=== PATIENT | female | born 1960 | race Hispanic/Latino ===

== ENCOUNTER 2019-08-05 07:12 | Day surgery (SDC) | payer OTHER ==
[2019-08-05] MEDS ORDERED: SODIUM CHLORIDE 0.9% 500 ML 500 ML IV SCH (09:00)
[2019-08-05] MEDS ORDERED: EPINEPHrine 1:10,000 1 MG/10 ML SYRINGE ONE (10:24)
[2019-08-05] MEDS ORDERED: ATROPINE 0.1% (1 MG/10 ML) CARDIAC SYRINGE ONE (10:24)
[2019-08-05] MEDS ORDERED: ADENOSINE 6 MG/2 ML INJ ONE (10:25)
[2019-08-05] MEDS: NITROGLYCERIN 0.4 MG TAB SUBL SL ONE ×2 (10:34→10:40)
[2019-08-05 11:49] VITALS: BP 110/61
--- NOTE | 2019-08-05 11:57 | Short Stay Summary ---
Short Stay Documentation Date of service: 08/05/19 - History H&P: obtained from office - Allergies and Medications Current Medications: Allergies aspirin Adverse Reaction (Unverified 08/05/19 07:12) Swelling latex Adverse Reaction (Unverified 08/05/19 07:13) Unknown pneumococcal vaccine Adverse Reaction (Verified 08/05/19 09:17) Swelling tramadol Adverse Reaction (Unverified 08/05/19 07:13) Rash Home Medications Medication Instructions Recorded Confirmed Last Taken Type Cetirizine HCl [Zyrtec 10mg tab] 10 mg PO QHS 08/05/19 08/05/19 08/04/19 History Clopidogrel [Plavix] 75 mg PO DAILY 08/05/19 08/05/19 08/05/19 05:00 History Metformin HCl [Metformin HCl ER] 500 mg PO BID 08/05/19 08/05/19 08/05/19 History Montelukast [Singulair] 10 mg PO QPM 08/05/19 08/05/19 08/04/19 History Omeprazole 20 mg PO DAILY 08/05/19 08/05/19 08/05/19 History Ranitidine HCl [Zantac] 300 mg PO QHS 08/05/19 08/05/19 08/04/19 History Verapamil ER [Calan SR] 180 mg PO DAILY 08/05/19 08/05/19 08/05/19 05:00 History Active Medications Sodium Chloride (Nacl 0.9% 500 Ml) 500 mls @ 50 mls/hr IV DIRECT MADDIE Last Admin: 08/05/19 09:10 Dose: 50 mls/hr Documented by: - Physical exam General appearance: no acute distress Lungs: Clear to auscultation Heart: Regular rate Gastrointestinal: normal Neurological: Normal gait - Brief post op/procedure progress note Date of procedure: 08/05/19 Pre-op diagnosis: Syncope Post-op diagnosis: same Procedure: TTT Anesthesia: none Findings: See report Surgeon: MARCY BURRIS Estimated blood loss: none Pathology: none Condition: stable - Hospital course Hospital course: Uneventful - Disposition Condition at discharge: Good Disposition: DC-01 TO HOME OR SELFCARE Short Stay Discharge Plan Activity: advance as tolerated Weight Bearing Status: Weight Bear as Tolerated Diet: regular Follow up with: VANESA STEVENS MD [Other] - 7 Days
--- NOTE | 2019-08-05 23:02 | Procedure Note ---
TILT TABLE TEST. ORDERING PHYSICIAN: Dr. Demarco Wiley DO INDICATION: Syncope. DESCRIPTION OF PROCEDURE: After obtaining written consent, the patient was brought to the director of cardiac cath lab area. The patient was secured on the tilt table test. Prior to tilting, her blood pressure was 112/66 with a heart rate of 61 beats per minute. The patient was tilted to 85 degrees from horizontal. Her blood pressure after tilting was 125/74 with a heart rate of 71 beats per minute. The patient was monitored for 10 minutes in the upright position. At the end of these 10 minutes, her blood pressure was 125/67 with a heart rate of 70 beats per minute. The patient was subsequently given 0.4 mg of sublingual nitroglycerin. Three minutes after the nitroglycerin dose, the patient's blood pressure dropped to 60/34. Her heart rate remained 55 beats per minute, sinus rhythm. The patient did not lose consciousness; however, due to the significant drop in blood pressure, she was tilted back to horizontal with gradual return of her blood pressure to 94/60. During that her heart rate maintained between 50 and 60 beats per minute. IMPRESSION: Vasodepressor response to nitroglycerin; however, no evidence of a cardioinhibitory response and no loss of consciousness. This is an inconclusive tilt table test. RECOMMENDATION: Follow up with referring operator and truck driver. JOB# [id number] LAMAR/BRIGHT
== END 2019-08-05 12:15 | disposition home or self-care (01) ==
LOC: CATHLABREC 07:12
PROVIDERS: ATTEND Internal Medicine
DX: R55 Syncope and collapse (principal); R42 Dizziness and giddiness; I10 Essential (primary) hypertension; J45.909 Unspecified asthma, uncomplicated; M19.90 Unspecified osteoarthritis, unspecified site; Z88.6 Allergy status to analgesic agent; Z91.040 Latex allergy status; Z88.8 Allergy status to other drugs, medicaments and biological substances; Z79.899 Other long term (current) drug therapy; Z79.84 Long term (current) use of oral hypoglycemic drugs; Z98.41 Cataract extraction status, right eye; Z98.42 Cataract extraction status, left eye; Z86.718 Personal history of other venous thrombosis and embolism; Z98.890 Other specified postprocedural states; Z85.89 Personal history of malignant neoplasm of other organs and systems; Z98.891 History of uterine scar from previous surgery; Z86.73 Personal history of transient ischemic attack (TIA), and cerebral infarction without residual deficits
CPT/HCPCS: 93660; J7040; J0153; J0171; J0461